=== PATIENT | female | born 1945 | race Caucasian/White ===

== ENCOUNTER 2018-01-29 07:38 | Inpatient (IN) | payer MEDICARE ==
--- NOTE | 2018-01-22 12:42 | HP ---
HISTORY AND PHYSICAL: DATE OF ADMISSION/SURGERY: 01/29/18 DATE OF OFFICE VISIT: 01/19/18 SURGEON: Jennifer Silva MD * (DICTATED BY SILVANO FLORES) PROCEDURE: Left total knee arthroplasty. CHIEF COMPLAINT: Left knee pain. HISTORY OF PRESENT ILLNESS: Ms. De Dios is a 72-year-old female with end-stage osteoarthritis of the left knee. She has failed conservative management and elected to proceed with the left knee arthroplasty, which is scheduled for 01/[address] Silva. PAST MEDICAL HISTORY: Hypothyroidism and GERD. PAST SURGICAL HISTORY: Cataract removal, partial thyroidectomy, and . CURRENT MEDICATIONS: 1. Aspirin 81 mg 2 tabs every day. 2. Red yeast rice. 3. CoQ10. 4. Ambien 10 mg q.h.s. 5. Synthroid 112 mcg daily. 6. Melatonin 5 mg q.h.s. 7. Eye vitamin daily. ALLERGIES: To PENICILLIN. FAMILY HISTORY: Diabetes, heart disease, and rheumatoid arthritis. SOCIAL HISTORY: She is a 72-year-old female. She lives with her . She does not smoke or use drugs. Uses occasional alcohol. REVIEW OF SYSTEMS: A complete 14-point review of systems was reviewed with the patient, was positive for hypothyroidism and GERD. She denies history of DVT, PE, hepatitis, HIV, or anesthesia problems. PHYSICAL EXAMINATION GENERAL: She is well-developed, well-nourished, in no acute distress. VITAL SIGNS: She stands 5 feet 4 inches tall, weighs 207 pounds. Her blood pressure is 124/84, heart rate is 68. HEENT: Normocephalic, atraumatic. NECK: Supple. No palpable lymph nodes. PULMONARY: The lungs are clear to auscultation bilaterally. CARDIO: Regular rate and rhythm. Strong S1 and S2. ABDOMEN: Soft, nontender, nondistended. NEUROLOGIC: She is alert and oriented x3. Cranial nerves II through XII are intact. MUSCULOSKELETAL: Left lower extremity, the skin is intact. There are no open wounds or abrasions. She has a moderate joint effusion. Range of motion 10 to 120 degrees, 2+ dorsalis pedis pulses, intact sensation and her lower extremity muscle group strengths are intact at 5/5. ASSESSMENT AND PLAN: Ms. De Dios is a 72-year-old female with chronic left knee pain and x-ray shows end-stage osteoarthritis. She has failed conservative management and elected to proceed with the left total knee arthroplasty, which is scheduled for 01/29/[address] Silva discussed the risks and benefits of the surgery at today's visit and all of her questions were answered. She will follow up with Dr. Silva in 2 weeks after the surgery. SILVANO FLORES [id number]/[facility] #: [id number] MTDD
[~2018-01-29 07:38] MED LIST: Acetaminophen IV 1GM/100ML * 1,000 MG/100 ML VIAL IVPB ONE; Buffered Lidocaine 0.9% SYRIN* 5 ML/SYR SYRINGE INTRADERM ONE; Dexamethasone IV* 4 MG/ML 1 ML (4 MG) IV SLOW PU ONE; Gabapentin CAP(*) 300 MG PO ONE; celeCOXIB CAP* 200 MG PO ONE
[2018-01-29] MEDS ORDERED: Dexamethasone IV* 4 MG/ML 1 ML (4 MG) ONE (07:46)
--- OUTSIDE RECORDS SUMMARY | 2018-01-29 07:46 | XMS REPORT ---
:1945 External Reference #:[id number] [facility] Address [address] [place] [address] Phone [phone] Care Team Providers Name Role Phone Jesus Mejia DO Primary Care Physician Unavailable Payers Type Date Identification Numbers Payment Provider Subscriber Medicare Primary Policy Number: [id number] Medicare Sanjana De Dios PayID: [id number] [address] [place] [address] [facility] Part B Policy Number: [id number] [facility] Sanjana De Dios PayID: [id number] [address] [place] [address] Medigap Part B Effective: 2016 Policy Number: CDPHP (OonAurea De Dios [id number] Expires: 2018 PayID: [id number] [address] [address] [place] [address] Problems Date Description Provider Status Onset: 01/14/2018 Localized, primary osteoarthritis Jennifer Silva M.D. Active Family History Date Family Member(s) Problem(s) Comments General No Current Problems Social History Type Date Description Comments Lives With Occupation Retired ETOH Use Occasionally consumes alcohol Smoking Patient has never smoked Smoking Patient is a former smoker Allergies, Adverse Reactions, Alerts Date Description Reaction Status Severity Comments 01/25/2016 Penicillin active Medications Medication Date Status Form Strength Qnty SIG Indications Ordering Provider Aspirin Active Chewtabs 81mg 1 by mouth Unknown 000 every day Red Rice 0 Active 1 by mouth Unknown Yeast 000 every day Coq-10 00/00/0 Active Capsules 150mg one every Unknown 000 day Ambien Active Tablets 10mg take 1 Unknown 000 tablet by mouth nightly at bedime as needed maximum daily dose of 1 per day Synthroid 0 Active Tablets 112mcg 1 by mouth Unknown 000 every day Melatonin Active Capsules 5mg 1 tablets Unknown 000 at bed time Multi Vitamin Active Tablets 1 by mouth Unknown Daily 000 every day Voltaren Hx Gel 1% 500unit apply 1- 2 Ranjana Meneses M.D. affected 018 area twice to four times a day, as needed Synthroid Hx Tablets 125mcg 1 by mouth Unknown 000 - every day 018 Vital Signs Date Vital Result Comment 01/14/2018 Height 64 inches 5'4" Weight 207.00 lb Heart Rate 72 /min BP Systolic 144 mmHg BP Diastolic 82 mmHg Respiratory Rate 14 /min Body Temperature 98.2 F Pain Level 0 BMI (Body Mass Index) 35.5 kg/m2 03/07/2016 Height 64.5 inches 5'4.50" Weight 200.00 lb BP Systolic Sitting 186 mmHg BP Diastolic Sitting 94 mmHg Respiratory Rate 16 /min Pain Level 2 BMI (Body Mass Index) 33.8 kg/m2 02/08/2016 Height 64.5 inches 5'4.50" Weight 200.00 lb Pain Level 2 BMI (Body Mass Index) 33.8 kg/m2 01/25/2016 Height 64.5 inches 5'4.50" Weight 200.00 lb Heart Rate 68 /min BP Systolic Sitting 134 mmHg BP Diastolic Sitting 82 mmHg Respiratory Rate 16 /min Pain Level 2 BMI (Body Mass Index) 33.8 kg/m2 Results Description No Information Procedures Date CPT Code Description Status 11/21/2017 24595 Colonoscopy Flexible W/Biopsy Completed 11/21/2017 Colonoscopy Completed Encounters Type Date Location Provider CPT E/M Dx Office Visit 03/07/2016 [facility] [place], [address] S62.316D 1:20p Of [facility] JHAVERI-C Office Visit 02/08/2016 [facility] Ranjana Meneses, 53734 S62.314D 3:20p Of [facility] C[facility] S63.652D Office Visit 01/25/2016 10:00a [facility], [address] S62.314A [facility] of Care Future Appointment(s):02/11/2018 11:30 am - [facility] 11[facility]00 am - [facility] - Jennifer Silva M.D.M25.562 Pain in left kneeNew Xrays:Knee 3 Views LTFollow up:Follow up: 7-10 days before tzvqcduC01.462 Effusion, left kneeM17.12 Unilateral primary osteoarthritis, left knee
--- OUTSIDE RECORDS SUMMARY | 2018-01-29 07:46 | XMS REPORT ---
:1945 External Reference #:[id number] Author Organization [facility] Address [address] [place] [address] Phone [phone] Care Team Providers Name Role Phone Jesus Mejia DO Primary Care Physician Unavailable Payers Type Date Identification Numbers Payment Provider Subscriber Medicare Primary Policy Number: [id number] Medicare Sanjana De Dios PayID: [id number] [address] [place] [address] [facility] Part B Policy Number: [id number] [facility] Sanjana De Dios PayID: [id number] [address] [place] [address] Medigap Part B Effective: 2016 Policy Number: CDPHP (OonAurea De Dios [id number] Expires: 2018 PayID: [id number] [address] [address] [place] [address] Problems Date Description Provider Status Onset: 01/14/2018 [...] Indications Ordering Provider Aspirin Active Chewtabs 81mg 2 by mouth Unknown 000 every day Red Rice 0 Active 1 by mouth Unknown Yeast 000 every day Coq-10 0 Active Capsules 150mg one every Unknown 000 day Ambien Active Tablets 10mg take 1 Unknown 000 tablet by mouth nightly at bedime as needed maximum daily dose of 1 per day Synthroid 0 Active Tablets 112mcg 1 by mouth Unknown 000 every day Melatonin 0 Active Capsules 5mg 1 tablets Unknown 000 at bed time Eye Vitamin 0 Active Tablets 1 by mouth Unknown 000 every day Voltaren Hx Gel 1% 500unit apply 1- 2 Ranjana Meneses M.D. affected 018 area twice to four times a day, as needed Synthroid 0 Hx Tablets 125mcg 1 by mouth Unknown 000 - every day 018 Vital Signs Date Vital Result Comment 01/19/2018 Height 64 inches 5'4" Weight 207.00 lb Heart Rate 68 /min BP Systolic 124 mmHg BP Diastolic 84 mmHg BMI (Body Mass Index) 35.5 kg/m2 01/14/2018 Height 64 inches 5'4" Weight 207.00 [...] Procedures Date CPT Code Description Status 11/21/2017 44586 Colonoscopy Flexible W/Biopsy Completed 11/21/2017 Colonoscopy Completed Encounters Type Date Location Provider CPT E/M Dx Office Visit 03/07/2016 [facility] [place], 20436 S62.316D 1:20p Of [facility] J[facility]AVER[facility]-C Office Visit 02/08/2016 [facility] Ranjana Meneses, 01029 S62.314D 3:20p Of [facility] Cuevas S63.652D Office Visit 01/25/2016 10:00a [facility] Ranjana Meneses, [address] S62.314A Of [facility] Cuevas S63.652A Plan of Care Future Appointment(s):01/29/2018 1:30 pm - Shaun Fair PA-C at [facility].01/29/2018 1:30 pm - SILVANO Malik at [facility].ALu01/29/2018 1:30 pm - Jennifer Silva M.D. at [facility]A.02/11/2018 11:30 am - Jennifer Silva M.D. at [facility].01/19/2018 - Jennifer Silva M.D.M25.562 Pain in left kneeFollow up:Follow up: 2 weeks after qhqwbemI61.462 Effusion, left kneeM17.12 Unilateral primary osteoarthritis, left knee
[2018-01-29] MEDS ORDERED: Clindamycin 900 MG IVPREMIX(* 900 MG/50 ML SDV IV ONE (07:47)
[2018-01-29] MEDS ORDERED: celeCOXIB CAP* 100 MG ONE (07:47)
[2018-01-29] MEDS ORDERED: Gabapentin CAP(*) 300 MG ONE (07:47)
[2018-01-29] MEDS ORDERED: Acetaminophen IV 1GM/100ML * 100 ML ONE (07:54)
[2018-01-29] MEDS ORDERED: Propofol* 10 MG/ML 20 ML BTL IV PUSH ONE (08:13)
[2018-01-29] MEDS ORDERED: fentaNYL* 50 MCG/ML 2 ML VIAL (100 MCG VIAL) ONE (08:13)
[2018-01-29] MEDS ORDERED: Bupivacaine 0.5% PF 10 ML VIAL INJ ONE (08:13)
[2018-01-29] MEDS ORDERED: Ondansetron INJ* 2 MG/ML VIAL ONE (08:13)
[2018-01-29] MEDS ORDERED: Midazolam* 1 MG/ML 5 ML VIAL (5 MG) ONE ×2 (08:13→10:57)
[2018-01-29] MEDS ORDERED: ROPIVACAINE 5 MG/ML 30 ML BTL (0.5%) ONE (09:10)
[2018-01-29] MEDS ORDERED: DiMENhydriNATE IV* 50 MG/ML VIAL IV PUSH PRN (11:06)
[2018-01-29] MEDS ORDERED: Ondansetron INJ* 2 MG/ML VIAL IV PRN ×2 (11:06→12:47)
[2018-01-29] MEDS ORDERED: Naloxone* 0.4 MG/ML 1 ML VIAL IV PRN (11:06)
[2018-01-29] MEDS ORDERED: HYDROmorphone INJ* 1 MG/ML CARPUJECT SYRINGE IV PRN (11:06)
[2018-01-29] MEDS ORDERED: fentaNYL* 50 MCG/ML 2 ML VIAL (100 MCG VIAL) IV PRN (11:06)
[2018-01-29] MEDS ORDERED: Bupivacaine 0.25% SDV* 30 ML ONE (11:18)
[2018-01-29] MEDS ORDERED: oxyCODONE/Acetamin 5/325 MG* TAB PO PRN (12:47)
[2018-01-29] MEDS ORDERED: Ondansetron TAB* 4 MG PO PRN (12:47)
[2018-01-29] MEDS ORDERED: oxyCODONE TAB* 5 MG TAB PO PRN (12:47)
[2018-01-29] MEDS ORDERED: Cyclobenzaprine TAB* 10 MG PO PRN (12:47)
[2018-01-29] MEDS ORDERED: Morphine VIAL* 4 MG/ML VIAL (1 ml vial) IV PRN (12:47)
[2018-01-29] MEDS ORDERED: Magnesium Hydroxide LIQ* 30 ML UDC PO PRN (12:47)
[2018-01-29] MEDS ORDERED: diPHENhydraMINE IV* 50 MG/ML 1 ml VIAL (BENADRYL) IV PRN (12:47)
[2018-01-29] MEDS ORDERED: Bisacodyl SUPP* 10 MG SUPP PR PRN (12:47)
[2018-01-29] MEDS ORDERED: Polyethylene Glycol 3350* 17 GM PACKET PO PRN (12:47)
--- NOTE | 2018-01-29 14:10 | RAD ---
Indication: Immediate postop exam following LEFT total knee replacement. Comparison: No relevant prior exams available on the [facility] for comparison. Technique: Portable AP and cross table lateral views LEFT knee. Report: Status post total knee replacement. Anterior surgical drain in place. Post-op fluid and gas is seen in the joint space and anterior subcutaneous tissues. Alignment is anatomic. No periprosthetic fracture evident. IMPRESSION: Unremarkable immediate postoperative appearance following LEFT knee replacement.
[2018-01-29] MEDS: oxyCODONE/Acetamin 5/325 MG* TAB PO PRN (16:53)
[2018-01-29] MEDS ORDERED: Warfarin TAB(*) 6 MG PO ONE (17:00)
[2018-01-29 18:19] LABS: ABS Basophils 0 10^3/ul (0-0.2); ABS Eosinophils 0 10^3/ul (0-0.6); ABS Monocytes 0.8 10^3/ul (0-0.8); ABS Neutrophils 11.8 10^3/ul (1.5-7.7); ABS Nucleated RBC 0 10^3/ul; Eosinophil % 0.1 % (0-6); Hematocrit 34 % (35-47); Hemoglobin 11.6 g/dl (12.0-16.0); Lymphocyte % 7.1 % (25-47); Mean Corpuscular HGB Conc 34 g/dl (31-36); Mean Corpuscular Hemoglobin 30 pg (27-31); Mean Corpuscular Volume 86 fL (80-97); Mean Platelet Volume 8.9 um3 (7.4-10.4); Nucleated Red Blood Cells % 0; Platelet Count 202 10^3/ul (150-450); Red Blood Count 3.91 10^6/ul (4.0-5.4); Red Cell Distribution Width 14 % (10.5-15); White Blood Count 13.6 10^3/ul (3.5-10.8)
[2018-01-29] MEDS: Clindamycin 600 MG IVPREMIX(* 600 MG/50 ML SDV IV SCH (18:37)
[2018-01-29 18:39] LABS: EGFR Non-African American 69.9 (>60)
--- NOTE | 2018-01-29 20:31 | CONS ---
CC: Dr. Silva; Dr. Wheat* CONSULTATION REPORT: DATE OF CONSULT: 01/29/18 PRIMARY CARE PROVIDER: Dr. Wheat. CONSULTATION REQUESTED BY: Dr. Silva. REASON FOR CONSULTATION: The patient was a CAT team call for hypotension. HISTORY OF PRESENT ILLNESS: Ms. Sanjana De Dios is a 72-year-old female with history of osteoarthritis, hypothyroidism that is postsurgical, gastroesophageal reflux disease who just came from our postsurgical unit after her left knee replacement today performed by Dr. Silva. Postoperatively she did okay, but she felt like she wants to eat. She sat up in bed and developed nausea. At this point, her vitals were taken. Her systolic pressures were in the 50s, her heart rate was in the 40s and the patient became diaphoretic and pale. CAT team was called. The patient received intravenous fluids, 0.5 mg of IV atropine. She never lost consciousness. She was talking throughout the entire episode. She was placed in Trendelenburg position. She was neurologically intact. After her atropine was administered and she received a significant portion of her 1 L bolus of IV fluids, her systolic pressures now are in the 90s, her heart rate is in the 70s. She complains of no pain. Medicine is going to be consulted in regards to further management of the patient's near syncope, hypotension and bradycardia. PAST MEDICAL HISTORY: 1. History of partial thyroidectomy and postsurgical hypothyroidism. 2. Status post left total knee replacement performed today on 01/29/[address] Silva. 3. History of gastroesophageal reflux disease. 4. History of cataract surgery. 5. History of . MEDICATIONS: At home include: 1. Aspirin 81 mg a day. The patient takes 2 tablets daily. 2. Red yeast rice. 3. Coenzyme Q10, 1 tablet daily. 4. Ambien 10 mg at q.h.s. 5. Synthroid 112 mcg daily. 6. Melatonin 5 mg daily. 7. Omeprazole 20 mg daily. Perioperatively, the patient received clindamycin 600 mg every 8 hours for a total of 3 doses. She is also continued on Synthroid and is receiving LR IV fluids at 100 mL an hour. ALLERGIES: Include PENICILLIN. FAMILY HISTORY: Positive for diabetes in parents. SOCIAL HISTORY: The patient lives with her . There is no history of tobacco, alcohol or drug use. Surrogate decision maker is her . Her daughter is by the bedside currently. REVIEW OF SYSTEMS: The patient's postoperative pain is well controlled. She stated that she was somewhat nauseated, but now she is not anymore. She also felt that she felt "weird" as nearly passing out and she stated that she has had several episodes before, especially on a hot day. She denies any headache, chest pain or shortness of breath. All the remaining 12 systems were reviewed with the patient and were otherwise negative. PHYSICAL EXAM: Blood pressure of 100/48, heart rate of 74 and regular, respiratory rate 12, oxygen saturation 100% on room air, temperature of 97.4. General: The patient is a very pleasant 72-year-old female, who appears pale. The patient is in no acute distress. Alert, awake, and oriented x3. HEENT: Head: Atraumatic, normocephalic. Eyes: Pupils are equal, reactive to light and accommodation. Oropharynx clear. Mucosa moist. Neck: Supple, no JVD, no bruits bilaterally. Respiratory: Clear to auscultation bilaterally. Cardiovascular: Regular rate and rhythm. No murmur. Abdomen: Soft, nontender. Bowel sounds were present in all 4 quadrants. Extremities: There is no edema. Pulses are +2 bilaterally. No clubbing or cyanosis. The left knee is placed in a postoperative dressing with a postoperative catheter in place. There are good peripheral pulses in all 4 extremities. There is no clubbing and no cyanosis. Neurological: Speech clear. Cranial nerves II through XII grossly intact. Motor strength is 5/5 bilaterally. DIAGNOSTIC STUDIES/LAB DATA: Laboratory data is pending at the time of dictation. The patient's EKG showed incomplete left bundle branch block as well as motion artifact. No evidence of acute changes. I do not have old EKG for comparison. ASSESSMENT AND PLAN: 1. Hypotension and bradycardia. The patient had become nauseated after surgery. At this point, it appears that the patient had a vagal episode. She received 0.5 mg of atropine and now she is hemodynamically stable. I discussed the case with Dr. Silva as well as with the patient's nurse. We will check the patient's vitals every hour for the next couple of hours and then continue with postoperative management with vitals every 2 hours thereafter. The patient also will receive a total of 1 L of intravenous fluids. During that time, her lab work is going to come back and I will address it if there are issues. Her EKG did not show any marked abnormalities, but her troponin is going to be drawn. 2. In regards to the patient's hypothyroidism, her Synthroid is going to be continued. 3. In regards to the patient's postoperative left knee, that is as per orthopedic surgeon. The patient's estimated blood loss during the procedure was approximately 250 mL. If she is significantly anemic, she may need transfusion. 4. For DVT prophylaxis, it was addressed by the orthopedic service with warfarin and Lovenox postoperatively already ordered. 5. The patient's code status is full and her surrogate is her . TIME SPENT: Approximately 58 minutes were spent on the consultation of this patient. Thank you for allowing me to see your patient in consultation. We will follow on a daily basis. [id number]/[facility] #: [id number] MTDD
[2018-01-29] MEDS: Magnesium Hydroxide LIQ* 30 ML UDC PO SCH (21:50)
[2018-01-29] MEDS: Docusate CAP* 100 MG PO SCH (21:50)
[2018-01-30] MEDS: Clindamycin 600 MG IVPREMIX(* 600 MG/50 ML SDV IV SCH ×2 (02:37→10:51)
[2018-01-30 06:04] LABS: EGFR Non-African American 76.4 (>60); INR 1.01 (0.77-1.02)
[2018-01-30 06:17] LABS: Hematocrit 30 % (35-47)
[2018-01-30] MEDS: Levothyroxine TAB* 112 MCG TAB PO SCH (06:29)
[2018-01-30] MEDS: oxyCODONE/Acetamin 5/325 MG* TAB PO PRN (07:14)
[2018-01-30 07:33] LABS: Mean Platelet Volume 9.2 um3 (7.4-10.4); Platelet Count 154 10^3/ul (150-450)
[2018-01-30] MEDS: Omeprazole CAP* 20 MG PO SCH (08:00)
[2018-01-30] MEDS: Magnesium Hydroxide LIQ* 30 ML UDC PO SCH ×2 (08:00→20:04)
[2018-01-30] MEDS: Docusate CAP* 100 MG PO SCH ×2 (08:00→20:04)
[2018-01-30] MEDS: [UNRECOGNIZED DRUG - OTHER] PO SCH (08:02)
[2018-01-30] MEDS: Fluticasone NASAL SPRAY 50MCG* 16 gm SPRAY BTL NASAL SCH (08:02)
--- NOTE | 2018-01-30 08:41 | OP ---
OPERATIVE REPORT: DATE OF OPERATION: 01/29/18 - Inpatient, room [facility]02. DATE OF : 49 SURGEON: Jennifer Silva MD INDUSTRIAL ENGINEERING: SILVANO Putnam Ms. did help throughout the procedure with preparation of the leg, wound retraction, manipulation of the knee, and wound closure. ANESTHESIOLOGIST: Dr. Bo. ANESTHESIA: Spinal. PRE-OP DIAGNOSIS: Severe end-stage degenerative osteoarthritis of the left knee joint. POST-OP DIAGNOSIS: Severe end-stage degenerative osteoarthritis of the left knee joint. OPERATIVE PROCEDURE: Left total knee arthroplasty. TOURNIQUET TIME: 45 minutes. ESTIMATED BLOOD LOSS: 300 cc. COMPLICATIONS: None. SPECIMENS: Bone and cartilage from the left knee joint sent to Pathology. HARDWARE USED: This is cemented [employer]in [employer] Nephew total knee arthroplasty hardware. Two packages of Simplex bone cement. For the femur, a size 5 left narrow Legion femoral component. For the tibia, Teagan II size 3 left tibial base plate. For the insert, a 9-mm posterior stabilized articular insert size 3 /4. For the patella, a 33-mm 3-peg all poly patella with 7.5 thickness. BRIEF HISTORY/INDICATION: Ms. De Dios is a 72-year-old female with one year of increasingly severe left knee pain. She failed conservative treatment with anti - inflammatories, pain medications, intraarticular injection, and physical therapy. Due to continued pain and decreased quality of life, she elected to undergo left total knee arthroplasty. Radiographs confirmed arthritis of the patient's left knee joint. Informed consent was obtained from the patient. The patient understood the risks of the procedure included, but were not limited to bleeding, infection, damage to nearby structures, continued pain , need for further surgery, intraoperative fracture, nerve palsy, hardware failure or loosening, knee stiffness, loss of motion, stroke, heart attack, blood clot, and . She wished to proceed. INTRAOPERATIVE FINDINGS: The patient was found to have tricompartmental loss of cartilage. The medial patellofemoral compartment had severe end stage loss of cartilage. DESCRIPTION OF PROCEDURE: Ms. De Dios was identified in the preanesthesia unit. Her left lower extremity was marked as the correct operative side. Informed consent was signed and placed in the chart. The patient was taken to the operating room and placed under spinal anesthesia. A Cummins catheter was placed. Tourniquet was placed on the left thigh. The left lower extremity was prepped and draped in the usual sterile fashion. Preop time-out was made to correctly identify the patient, side and site. Appropriate perioperative antibiotics were given within 1 hour of incision. Tourniquet was inflated until tourniquet time for this procedure was 45 minutes. A 12-cm midline incision was made with a 10 blade and carried down to the extensor mechanism. A new 10 blade was used to make a standard medial parapatellar arthrotomy. The patella was subluxed laterally. Electrocautery was used to subperiosteally elevate the soft tissue off the superomedial tibia to the mid sagittal plane. The knee was flexed up. The anterior horn of the lateral meniscus and ACL were sharply released. A drill was used to enter the distal femur. Intramedullary distal femoral cutting guide was pinned on the distal femur. An oscillating saw was used to make the appropriate distal femoral cut. Next, the external rotation guide was pinned on the distal femur. Distal femur was sized to a size 5. A size 5 multi-cutting jig was pinned on the distal femur. Oscillating saw was used to make the appropriate 4 chamfer cuts. Next, the PCL was completely released. The tibia was subluxed anteriorly. Extramedullary tibial cutting guide was pinned on the proximal tibia. The oscillating saw was used to make the proximal tibial cut perpendicular to the mechanical axis of the tibia. The bone was carefully removed. The knee was brought out into full extension. Alignment was satisfactory. Medial and lateral ligaments were well balanced. Flexion and extension gaps were well balanced. The knee was flexed up. Lamina rn neurosurgical was placed both medially and laterally. Any remaining meniscus was carefully removed using electrocautery. Curved osteotome was used to remove any remaining posterior osteophytes. A size 5 narrow left femoral trial was impacted on to the distal femur and had excellent fit. The box for the posterior stabilized implant was prepared using a reamer and box cut osteotome. Size 3 tibial tray trial with a 9-mm insert trial was placed. The knee was taken through a range of motion. The knee had full extension to 130 degrees of flexion with satisfactory patellofemoral tracking. The patella was everted. 7 mm of patellar bone and cartilage was carefully removed using an oscillating saw. The patella was sized to a size 32. Three peg holes were drilled through the size 32 guide. A trial 32 patella with 7.5 thickness was placed and the knee was taken through a range of motion. There was satisfactory patellofemoral tracking. All trials were carefully removed. The tibia was subluxed anteriorly and sized to a size 3. Proximal tibia was prepared using a size 3 keel punch. All bony cut surfaces were copiously irrigated with sterile saline and dried. Final implants were cemented into place, starting with the tibia followed by the femur and last the patella. A 9- mm insert trial was placed and the knee was taken into full extension. Tourniquet was turned down at 45 minutes. The knee was copiously irrigated with sterile saline. Electrocautery was used to obtain meticulous hemostasis. Once the cement had fully cured, the insert trial was removed. Any excess cement was removed from around the capsule and hardware. The extensor mechanism was closed using interrupted #1 Vicryl. The rest of the incision was closed using 0 and 2-0 Vicryl. The skin was closed using running 3-0 nylon suture. Xeroform, 4x4s, and Webril were placed at the incision. Barry wrap and cold pack were placed over this. The patient's anesthesia was reversed without difficulty. She was taken to the PACU in stable condition. Intended weightbearing will be weightbearing as tolerated. Intended DVT prophylaxis will be Coumadin with a Lovenox bridge. [id number]/[facility] #: [id number] JENNIFER
--- NOTE | 2018-01-30 08:55 | PN ---
Progress Note - Progress Note Date of Service: 01/30/18 SOAP: Subjective: 72 y/o female s/p L TKA 01/[address] Silva. Patient with episodes of hypotension overnight, resolved in AM, however reoccurred around lunch after receiving [place]. Afebrile overnight. Continues to have lightheadedness, dizzness with associated nausea during episodes. Hospitalists consulted, following. Pain controlled, unable to ambulate well due to hypotension, nausea a Objective: General- Well appearing, NAD, AO resting in chair, fatigued appearing. MSK- LLE- DF/PF = b/l, PT 2+, negative homans sign, sensation intact, dressing intact, no drainage noted. Vital Signs Temp 97.6 F 01/30/18 07:54 Pulse 73 01/30/18 07:54 Resp 16 01/30/18 07:54 BP 115/48 01/30/18 07:54 Pulse Ox 99 01/30/18 07:54 Intake & Output 01/29/18 01/30/18 01/30/18 18:59 06:59 18:59 Intake Total 3630 720 Output Total 630 825 Balance 3000 -105 Weight 93.712 kg Intake: IV Fluids 3150 CLINDAMYCIN 900 MG 50 LR 3100 Oral 480 720 Output: Cummins 600 825 Residual 30 Cummins 16 Fr 30 Assessment: Stable 72 y/o female s/p L TKA 01/[address] Silva. Plan: - Urgent call yesterday d/t hypotension- VSS, better in AM, repeat episode this PM--> hospitalists made aware, EKG, Pain medication changed to [place], minimal amount currently. Fluid bolus given, continue IVFs. Troponin drawn yesterday , negative. Stat EKG. - DVT prophylaxis- lovenox, coumadin INR 1.01 Coumadin 5mg - Continue PT/ OT - Follow up with Dr. Silva within 10-14 days - H&H - Stable - post-op IV ABX - Clinda running Acetaminophen (Tylenol Tab*) 650 mg PO Q4H PRN PRN Reason: PAIN OR TEMPERATURE Bisacodyl (Dulcolax Supp*) 10 mg [place] DAILY PRN PRN Reason: constipation Cetirizine HCl (Zyrtec*) 10 mg PO DAILY PRN PRN Reason: ALLERGY SYMPTOMS Cyclobenzaprine HCl (Flexeril Tab*) 10 mg PO TID PRN PRN Reason: SPASMS Diphenhydramine HCl (Benadryl Iv*) 12.5 mg IV Q6H PRN PRN Reason: PRURITIS Docusate Sodium (Colace Cap*) 100 mg PO BID [facility] Last Admin: 01/30/18 08:00 Dose: 100 mg Enoxaparin Sodium (Lovenox(*)) 30 mg SUBCUT Q24H [facility] Fluticasone Propionate (Flonase Nasal [place] 50mcg*) 1 spray NASAL QAM [facility] Last Admin: 01/30/18 08:02 Dose: 1 spray Clindamycin HCl/Dextrose (Cleocin 600 Mg Ivpremix(*) Sdv) 600 mg in 50 mls @ 100 mls/hr IV Q8H [facility] Stop: 01/30/18 10:59 Last Admin: 01/30/18 02:37 Dose: 100 mls/hr Lactated Ringer's (Lactated Ringers 1000 Ml Bag*) 1,000 mls @ 100 mls/hr IV PER RATE [facility] Last Admin: 01/30/18 02:41 Dose: 100 mls/hr Lactulose (Lactulose*) 30 ml PO Q6H PRN PRN Reason: constipation Levothyroxine Sodium (Synthroid Tab*) 112 mcg PO DAILY@0600 [facility] Last Admin: 01/30/18 06:29 Dose: 112 mcg Magnesium Hydroxide (Milk Of Magnesia Liq*) 30 ml PO BID [facility] Last Admin: 01/30/18 08:00 Dose: 30 ml Magnesium Hydroxide (Milk Of Magnesia Liq*) 30 ml PO Q6H PRN PRN Reason: constipation Morphine Sulfate (Morphine Vial*) 2 mg IV Q2H PRN PRN Reason: PAIN Nf: Macuvite Eye (Care Tablet) 1 tab PO QAM [facility] Last Admin: 01/30/18 08:02 Dose: Not Given Omeprazole (Prilosec Cap*) 20 mg PO DAILY@0730 [facility] Last Admin: 01/30/18 08:00 Dose: 20 mg Ondansetron HCl (Zofran Inj*) 4 mg IV Q6H PRN PRN Reason: nausea Ondansetron HCl (Zofran Tab*) 4 mg PO Q6H PRN PRN Reason: NAUSEA Oxycodone HCl (Roxycodone Tab*) 10 mg PO Q4H PRN PRN Reason: SEVERE PAIN Last Admin: 01/29/18 21:50 Dose: 10 mg Oxycodone/Acetaminophen (Percocet 5/325 Tab*) 2 tab PO Q4H PRN PRN Reason: PAIN Last Admin: 01/30/18 07:14 Dose: 2 tab Oxycodone/Acetaminophen (Percocet 5/325 Tab*) 1 tab PO Q4H PRN PRN Reason: PAIN Last Admin: 01/30/18 02:48 Dose: 1 tab Polyethylene Glycol/Electrolytes (Miralax*) 17 gm PO DAILY PRN PRN Reason: Constipation
[2018-01-30] MEDS ORDERED: Cetirizine* 10 MG TAB PO PRN (09:00)
[2018-01-30] MEDS ORDERED: HYDROcodone/ACETAMIN 5-325 MG* 1 TAB PO PRN ×3 (09:42→12:57)
[2018-01-30] MEDS ORDERED: NS 0.9% 500 ML* 500 ML IV ONE (09:44)
[2018-01-30] MEDS: Enoxaparin(*) 30 MG/0.3 ML SYR SUBCUT SCH (12:53)
[2018-01-30] MEDS: Cyclobenzaprine TAB* 10 MG PO PRN (14:31)
--- NOTE | 2018-01-30 15:03 | PN ---
Subjective Date of Service: 01/30/18 Interval History: pt had another episode of bradycardia and hypotension with getting nauseated after taking [place]. C/o fair amount of post op pain Objective Active Medications: Acetaminophen (Tylenol Tab*) 650 mg PO Q4H PRN PRN Reason: PAIN OR TEMPERATURE Hydrocodone Bitart/Acetaminophen ([place] 5-325 Tab*) 1 tab PO Q4H PRN PRN Reason: PAIN - MODERATE TO SEVERE Bisacodyl (Dulcolax Supp*) 10 mg CA DAILY PRN PRN Reason: constipation Cetirizine HCl (Zyrtec*) 10 mg PO DAILY PRN PRN Reason: ALLERGY SYMPTOMS Cyclobenzaprine HCl (Flexeril Tab*) 5 mg PO TID PRN PRN Reason: SPASMS Last Admin: 01/30/18 14:31 Dose: 5 mg Diphenhydramine HCl (Benadryl Iv*) 12.5 mg IV Q6H PRN PRN Reason: PRURITIS Docusate Sodium (Colace Cap*) 100 mg PO BID [facility] Last Admin: 01/30/18 08:00 Dose: 100 mg Enoxaparin Sodium (Lovenox(*)) 30 mg SUBCUT Q24H [facility] Last Admin: 01/30/18 12:53 Dose: 30 mg Fluticasone Propionate (Flonase Nasal [place] 50mcg*) 1 spray NASAL [facility] Last Admin: 01/30/18 08:02 Dose: 1 spray Lactated Ringer's (Lactated Ringers 1000 Ml Bag*) 1,000 mls @ 100 mls/hr IV PER RATE [facility] Last Admin: 01/30/18 12:53 Dose: 100 mls/hr Lactulose (Lactulose*) 30 ml PO Q6H PRN PRN Reason: constipation Levothyroxine Sodium (Synthroid Tab*) 112 mcg PO DAILY@0600 [facility] Last Admin: 01/30/18 06:29 Dose: 112 mcg Magnesium Hydroxide (Milk Of Magnesia Liq*) 30 ml PO BID [facility] Last Admin: 01/30/18 08:00 Dose: 30 ml Magnesium Hydroxide (Milk Of Magnesia Liq*) 30 ml PO Q6H PRN PRN Reason: constipation Morphine Sulfate (Morphine Vial*) 2 mg IV Q2H PRN PRN Reason: PAIN Nf: Macuvite Eye (Care Tablet) 1 tab PO QAM [facility] Last Admin: 01/30/18 08:02 Dose: Not Given Omeprazole (Prilosec Cap*) 20 mg PO DAILY@0730 [facility] Last Admin: 01/30/18 08:00 Dose: 20 mg Ondansetron HCl (Zofran Inj*) 4 mg IV Q6H PRN PRN Reason: nausea Ondansetron HCl (Zofran Tab*) 4 mg PO Q6H PRN PRN Reason: NAUSEA Pharmacy Profile Note (Coumadin Daily Reminder*) 1 note FOLLOW UP 1700 [facility] Polyethylene Glycol/Electrolytes (Miralax*) 17 gm PO DAILY PRN PRN Reason: Constipation Tramadol HCl (Ultram*) 50 mg PO Q4H PRN PRN Reason: PAIN - MILD TO MODERATE Warfarin Sodium (Coumadin Tab(*)) 5 mg PO ONCE@1700 ONE PRN Reason: Protocol Stop: 01/30/18 17:01 Vital Signs - 8 hr 01/30/18 01/30/18 01/30/18 07:14 07:54 09:09 Temperature 97.6 F Pulse Rate 73 57 Respiratory 16 16 Rate Blood Pressure 115/48 87/44 (mmHg) O2 Sat by Pulse 99 100 Oximetry 01/30/18 01/30/18 01/30/18 10:55 11:56 12:05 Temperature 98.3 F Pulse Rate 68 Respiratory 16 16 16 Rate Blood Pressure 114/47 (mmHg) O2 Sat by Pulse 96 Oximetry 01/30/18 01/30/18 12:27 14:31 Temperature 98.1 F Pulse Rate 56 Respiratory 16 Rate Blood Pressure 82/39 (mmHg) O2 Sat by Pulse Oximetry Oxygen Devices in Use Now: None Appearance: 72 yo F in nAD, AAOx3 Eyes: No Scleral Icterus, PERRLA Ears/Nose/Mouth/Throat: NL Teeth, Lips, Gums, Mucous Membranes Moist Neck: NL Appearance and Movements; NL JVP, Trachea Midline Respiratory: Symmetrical Chest Expansion and Respiratory Effort, Clear to Auscultation Cardiovascular: NL Sounds; No Murmurs; No JVD, RRR Abdominal: NL Sounds; No Tenderness; No Distention Lymphatic: No Cervical Adenopathy Extremities: No Clubbing, Cyanosis, - - left knee in post op dressing Skin: No Nodules or Sclerosis Neurological: Alert and Oriented x 3, NL Muscle Strength and Tone Result Diagrams: 01/30/18 07:27 01/30/18 05:26 Assess/Plan/Problems-Billing Assessment: 72 yo F with h/o hypothyroidism s/p left knee replacement who had a vagal episode post op when nauseated - Patient Problems (1) Vaso vagal episode Comment: pt had another episode of nausea and bradycardia today. Meds changed from Percocet and [place] to Ultram (2) Hypothyroid Comment: cont current synthroid (3) DVT prophylaxis Comment: Lovenox and Coumadin as per ortho Status and Disposition: Medicine consult, will follow
[2018-01-30] MEDS ORDERED: Warfarin TAB(*) 5 MG PO ONE (17:00)
[2018-01-30] MEDS: traMADol TAB* 50 MG PO PRN ×2 (18:02→22:49)
[2018-01-30] MEDS: Acetaminophen TAB* 325 MG PO PRN (20:04)
[2018-01-31] MEDS: Cyclobenzaprine TAB* 10 MG PO PRN (00:27)
[2018-01-31] MEDS: traMADol TAB* 50 MG PO PRN ×5 (03:38→20:56)
[2018-01-31] MEDS: Levothyroxine TAB* 112 MCG TAB PO SCH (05:52)
[2018-01-31 05:56] LABS: Hematocrit 29 % (35-47); Hemoglobin 10.2 g/dl (12.0-16.0); Mean Platelet Volume 9.5 um3 (7.4-10.4); Platelet Count 142 10^3/ul (150-450)
[2018-01-31 06:13] LABS: INR 1.25 (0.77-1.02)
[2018-01-31] MEDS: Omeprazole CAP* 20 MG PO SCH (07:50)
[2018-01-31] MEDS: Docusate CAP* 100 MG PO SCH ×2 (07:50→20:56)
--- NOTE | 2018-01-31 07:50 | PN ---
Progress Note - Progress Note Date of Service: 01/31/18 SOAP: Subjective: Pt. is feeling better this AM - feels she "lost a day" yesterday because of weakness and nausea. Objective: LLE - dressing changed, inc c/d/i. distally nvi. Vital Signs: Temp Pulse Resp BP Pulse Ox 97.4 F 79 14 132/55 94 01/31/18 07:10 01/31/18 07:10 01/31/18 07:10 01/31/18 07:10 01/31/18 07:10 Laboratory Results - last 24 hr 01/30/18 01/30/18 01/31/18 15:46 21:03 05:34 Hgb 10.2 L Hct 29 L Plt Count 142 L MPV 9.5 INR (Anticoag Therapy) Troponin I 0.00 0.00 01/31/18 05:34 Hgb Hct Plt Count MPV INR (Anticoag Therapy) 1.25 H Troponin I Assessment: 72 yo F pod 2 s/p LTKA Plan: pt/ot wbat 8 mg coumadin tonight lovenox today plan d/c to home on 02/01 with vns
[2018-01-31] MEDS: [UNRECOGNIZED DRUG - OTHER] PO SCH (07:52)
[2018-01-31] MEDS: Fluticasone NASAL SPRAY 50MCG* 16 gm SPRAY BTL NASAL SCH (07:52)
[2018-01-31] MEDS: Magnesium Hydroxide LIQ* 30 ML UDC PO SCH ×2 (07:52→20:55)
--- NOTE | 2018-01-31 09:47 | PN ---
Subjective Date of Service: 01/31/18 Interval History: Pt feels well. Still poor appetite, but no more nausea and pain is fairly controlled Objective Active Medications: Acetaminophen (Tylenol Tab*) 650 mg PO Q4H PRN PRN Reason: PAIN OR TEMPERATURE Last Admin: 01/30/18 20:04 Dose: 650 mg Hydrocodone Bitart/Acetaminophen ([place] 5-325 Tab*) 1 tab PO Q4H PRN PRN Reason: PAIN - MODERATE TO SEVERE Bisacodyl (Dulcolax Supp*) 10 mg [place] DAILY PRN PRN Reason: constipation Cetirizine HCl (Zyrtec*) 10 mg PO DAILY PRN PRN Reason: ALLERGY SYMPTOMS Cyclobenzaprine HCl (Flexeril Tab*) 5 mg PO TID PRN PRN Reason: SPASMS Last Admin: 01/31/18 00:27 Dose: 5 mg Diphenhydramine HCl (Benadryl Iv*) 12.5 mg IV Q6H PRN PRN Reason: PRURITIS Docusate Sodium (Colace Cap*) 100 mg PO BID [facility] Last Admin: 01/31/18 07:50 Dose: 100 mg Enoxaparin Sodium (Lovenox(*)) 30 mg SUBCUT Q24H [facility] Last Admin: 01/30/18 12:53 Dose: 30 mg Fluticasone Propionate (Flonase Nasal [place] 50mcg*) 1 spray NASAL [facility] Last Admin: 01/31/18 07:52 Dose: 1 spray Lactulose (Lactulose*) 30 ml PO Q6H PRN PRN Reason: constipation Levothyroxine Sodium (Synthroid Tab*) 112 mcg PO DAILY@0600 [facility] Last Admin: 01/31/18 05:52 Dose: 112 mcg Magnesium Hydroxide (Milk Of Magnesia Liq*) 30 ml PO BID [facility] Last Admin: 01/31/18 07:52 Dose: Not Given Magnesium Hydroxide (Milk Of Magnesia Liq*) 30 ml PO Q6H PRN PRN Reason: constipation Morphine Sulfate (Morphine Vial*) 2 mg IV Q2H PRN PRN Reason: PAIN Nf: Macuvite Eye (Care Tablet) 1 tab PO QAM [facility] Last Admin: 01/31/18 07:52 Dose: Not Given Omeprazole (Prilosec Cap*) 20 mg PO DAILY@0730 [facility] Last Admin: 01/31/18 07:50 Dose: 20 mg Ondansetron HCl (Zofran Inj*) 4 mg IV Q6H PRN PRN Reason: nausea Ondansetron HCl (Zofran Tab*) 4 mg PO Q6H PRN PRN Reason: NAUSEA Pharmacy Profile Note (Coumadin Daily Reminder*) 1 note FOLLOW UP 1700 [facility] Polyethylene Glycol/Electrolytes (Miralax*) 17 gm PO DAILY PRN PRN Reason: Constipation Tramadol HCl (Ultram*) 50 mg PO Q4H PRN PRN Reason: PAIN - MILD TO MODERATE Last Admin: 01/31/18 07:50 Dose: 50 mg Warfarin Sodium (Coumadin Tab(*)) 8 mg PO ONCE@1700 ONE PRN Reason: Protocol Stop: 01/31/18 17:01 Vital Signs - 8 hr 01/31/18 01/31/18 01/31/18 02:25 03:38 03:41 Temperature 98.0 F Pulse Rate 80 Respiratory 16 18 18 Rate Blood Pressure 127/56 (mmHg) O2 Sat by Pulse 98 Oximetry 01/31/18 01/31/18 01/31/18 03:54 03:57 03:59 Temperature Pulse Rate 83 93 89 Respiratory Rate Blood Pressure 129/57 106/82 132/63 (mmHg) O2 Sat by Pulse Oximetry 01/31/18 01/31/18 01/31/18 05:53 07:10 07:50 Temperature 97.4 F Pulse Rate 79 Respiratory 16 14 20 Rate Blood Pressure 132/55 (mmHg) O2 Sat by Pulse 94 Oximetry 01/31/18 08:00 Temperature Pulse Rate Respiratory 18 Rate Blood Pressure (mmHg) O2 Sat by Pulse 94 Oximetry Oxygen Devices in Use Now: None Appearance: 72 yo F in nAD, aAOx3 Eyes: No Scleral Icterus, PERRLA Ears/Nose/Mouth/Throat: NL Teeth, Lips, Gums, Mucous Membranes Moist Neck: NL Appearance and Movements; NL JVP, Trachea Midline Respiratory: Symmetrical Chest Expansion and Respiratory Effort, Clear to Auscultation Cardiovascular: NL Sounds; No Murmurs; No JVD, RRR Abdominal: NL Sounds; No Tenderness; No Distention, No Hepatosplenomegaly Lymphatic: No Cervical Adenopathy Extremities: No Clubbing, Cyanosis Skin: No Nodules or Sclerosis, - - Left knee in post op dressings-not removed Neurological: Alert and Oriented x 3, NL Muscle Strength and Tone Result Diagrams: 01/31/18 05:34 01/30/18 05:26 Assess/Plan/Problems-Billing Assessment: 72 yo F with h/o hypothyroidism s/p left knee replacement who had a vagal episode post op when nauseated - Patient Problems (1) Vaso vagal episode Comment: Meds changed from Percocet and [place] to Ultram. No more nausea noted. Cont to monitor Last vagal episode on 01/30/18 (2) Hypothyroid Comment: cont current synthroid (3) DVT prophylaxis Comment: Lovenox and Coumadin as per ortho Status and Disposition: Medicine consult, will follow
[2018-01-31] MEDS: Enoxaparin(*) 30 MG/0.3 ML SYR SUBCUT SCH (11:58)
[2018-01-31] MEDS ORDERED: Warfarin TAB(*) 4 MG PO ONE (17:00)
[2018-02-01] MEDS: traMADol TAB* 50 MG PO PRN ×2 (04:52→11:13)
[2018-02-01 06:19] LABS: Hematocrit 29 % (35-47); Hemoglobin 9.8 g/dl (12.0-16.0); Platelet Count 143 10^3/ul (150-450)
[2018-02-01 06:25] LABS: INR 1.69 (0.77-1.02)
[2018-02-01] MEDS: Levothyroxine TAB* 112 MCG TAB PO SCH (06:33)
[2018-02-01] MEDS: Omeprazole CAP* 20 MG PO SCH (07:50)
[2018-02-01] MEDS: Acetaminophen TAB* 325 MG PO PRN (07:55)
[2018-02-01 09:20] VITALS: BP 131/55
[2018-02-01] MEDS: [UNRECOGNIZED DRUG - OTHER] PO SCH (09:50)
[2018-02-01] MEDS: Docusate CAP* 100 MG PO SCH (10:38)
[2018-02-01] MEDS: Fluticasone NASAL SPRAY 50MCG* 16 gm SPRAY BTL NASAL SCH (10:38)
[2018-02-01] MEDS: Enoxaparin(*) 30 MG/0.3 ML SYR SUBCUT SCH (11:13)
--- NOTE | 2018-02-01 19:15 | PN ---
Progress Note - Progress Note Date of Service: 02/01/18 SOAP: Subjective: Pt sitting comfortably in chair. States feeling much better. Complains of minimal pain. Denies F/C. Objective: Vital Signs: Temp Pulse Resp BP Pulse Ox 98.3 F 70 18 131/55 100 02/01/18 07:58 02/01/18 07:58 02/01/18 11:13 02/01/18 07:58 02/01/18 08:00 Laboratory Last Values WBC 13.6 10^3/ul (3.5-10.8) H 01/29/18 18:10 RBC 3.91 10^6/ul (4.0-5.4) L 01/29/18 18:10 Hgb 9.8 g/dl (12.0-16.0) L 02/01/18 06:01 Hct 29 % (35-47) L 02/01/18 06:01 MCV 86 fL (80-97) 01/29/18 18:10 MCH 30 pg (27-31) 01/29/18 18:10 MCHC 34 g/dl (31-36) 01/29/18 18:10 RDW 14 % (10.5-15) 01/29/18 18:10 Plt Count 143 10^3/ul (150-450) L 02/01/18 06:01 MPV 9.0 um3 (7.4-10.4) 02/01/18 06:01 Neut % (Auto) 86.9 % (38-83) H 01/29/18 18:10 Lymph % (Auto) 7.1 % (25-47) L 01/29/18 18:10 [place] % (Auto) 5.8 % (0-7) 01/29/18 18:10 Eos % (Auto) 0.1 % (0-6) 01/29/18 18:10 Baso % (Auto) 0.1 % (0-2) 01/29/18 18:10 Absolute Neuts (auto) 11.8 10^3/ul (1.5-7.7) H 01/29/18 18:10 Absolute Lymphs (auto) 1.0 10^3/ul (1.0-4.8) 01/29/18 18:10 Absolute Monos (auto) 0.8 10^3/ul (0-0.8) 01/29/18 18:10 Absolute Eos (auto) 0 10^3/ul (0-0.6) 01/29/18 18:10 Absolute Basos (auto) 0 10^3/ul (0-0.2) 01/29/18 18:10 Absolute Nucleated RBC 0 10^3/ul 01/29/18 18:10 Nucleated RBC % 0 01/29/18 18:10 INR (Anticoag Therapy) 1.69 (0.77-1.02) H 02/01/18 06:01 Sodium 134 mmol/L (139-145) L 01/30/18 05:26 Potassium 4.0 mmol/L (3.5-5.0) 01/30/18 05:26 Chloride 101 mmol/L (101-111) 01/30/18 05:26 Carbon Dioxide 25 mmol/L (22-32) 01/30/18 05:26 Anion Gap 8 mmol/L (2-11) 01/30/18 05:26 BUN 13 mg/dL (6-24) 01/30/18 05:26 Creatinine 0.75 mg/dL (0.51-0.95) 01/30/18 05:26 Est GFR ( Amer) 98.2 (>60) 01/30/18 05:26 Est GFR (Non-Af Amer) 76.4 (>60) 01/30/18 05:26 BUN/Creatinine Ratio 17.3 (8-20) 01/30/18 05:26 Glucose 114 mg/dL (70-100) H 01/30/18 05:26 Lactic Acid 2.5 mmol/L (0.5-2.0) H* 01/29/18 18:10 Calcium 8.4 mg/dL (8.6-10.3) L 01/30/18 05:26 Troponin I 0.00 ng/mL (<0.04) 01/30/18 21:03 Dressing C/D/I. Calves soft, nontender. No edema. 2+ DP pulses. Sensation intact to light touch distally Assessment: 72 yo female s/p Left TKA POD #3 Plan: OOB PT/OT pain control DVT Prophylaxis - Coumadin [place] home
== END 2018-02-01 11:40 | disposition home health service (06) | DRG 470 ==
LOC: AA 07:38 → SSU 15:33
PROVIDERS: ADMIT Orthopaedic Surgery Adult Reconstructive Orthopaedic Surgery; ATTEND Orthopaedic Surgery Adult Reconstructive Orthopaedic Surgery
PROC: 0SRD0J9 Replacement of Left Knee Joint with Synthetic Substitute, Cemented, Open Approach (ICD-10-PCS; principal; 2018-01-29 10:00)
DX: M17.12 Unilateral primary osteoarthritis, left knee (principal); E03.9 Hypothyroidism, unspecified; K21.9 Gastro-esophageal reflux disease without esophagitis; E66.9 Obesity, unspecified; E78.00 Pure hypercholesterolemia, unspecified; I44.7 Left bundle-branch block, unspecified; M25.462 Effusion, left knee; I83.813 Varicose veins of bilateral lower extremities with pain; M25.762 Osteophyte, left knee; R00.1 Bradycardia, unspecified; R11.0 Nausea; R55 Syncope and collapse; I95.9 Hypotension, unspecified; R53.1 Weakness; Z98.49 Cataract extraction status, unspecified eye; Z88.0 Allergy status to penicillin; Z83.3 Family history of diabetes mellitus; Z72.89 Other problems related to lifestyle; Z82.61 Family history of arthritis; Z82.49 Family history of ischemic heart disease and other diseases of the circulatory system; Z68.34 Body mass index [BMI] 34.0-34.9, adult; Z81.1 Family history of alcohol abuse and dependence; Z83.6 Family history of other diseases of the respiratory system; Z87.891 Personal history of nicotine dependence
CPT/HCPCS: 36415; 62327; 80048; 83605; 84484; 85014; 85018; 85025; 85049; 85610; 88305; 88311; 93005; A9270-GY; C1776; G8978-GP-CK; G8979-GP-CI; G8987-GO-CK; G8988-GO-CI; J1100; J1650; J2250; J2405; J2704; J2795; J3010